=== PATIENT | male | born 1970 | race African-American/Black ===

== ENCOUNTER 2021-12-29 19:09 | Inpatient (IN) | payer MEDICAID ==
[~2021-12-29] VITALS: Ht 188 cm; Wt 77.6 kg
[2021-12-29 19:50] VITALS: BP_SYST 57
--- NOTE | 2021-12-29 20:28 | NUR ---
DR HITCHCOCK HAD ME CALL MOTHER, spk with patients mother over the phone, she stated that patient (son) Calvin Martinez is DNR, EVEN THOUGH LEFE-SUSTAINING FORM FROM [facility] STATES COMFORT MEASURES ONLY FORM IS FROM 2009.
[2021-12-29] MEDS ORDERED: NACL 0.9% 1,000 ML IV ONE (20:30)
[2021-12-29] MEDS ORDERED: dilTIAZem HCL IVP 5 MG/ML VIAL IVP ONE (20:30)
[2021-12-29] MEDS ORDERED: DILTIAZEM HCL 60 MG TABLET PO ONE (20:30)
--- NOTE | 2021-12-29 20:52 | NUR ---
SPK TO MOTHER LINDA CLINE OK TO GIVE PT HER SON CARLEY MCDOWELL MEDS TO TREAT HYPOTENSION. MOTHER STATED OK FOR COMFORT MEASURES.
[2021-12-29] MEDS ORDERED: NOREPINEPHRINE BITARTRATE 4 MG in NS 246 ML IV ONE (21:15)
[2021-12-29] MEDS ORDERED: NACL 0.9% 2,000 ML IV ONE (21:15)
[2021-12-29 21:24] LABS: ANION GAP 18 (5-15); CALCIUM 10.4 mg/dL (8.4-11.0); CHLORIDE 101 mmol/L (98-107); CREATININE 1.18 mg/dL (0.55-1.30); GLUCOSE 77 mg/dL (70-99); POTASSIUM 4.5 mmol/L (3.5-5.1); SODIUM SERUM 128 mmol/L (136-145); UREA NITROGEN, BLOOD 60 mg/dL (8-21)
[2021-12-29] MEDS ORDERED: NOREPINEPHRINE 4 MG/4 ML VIAL IV ONE (21:24)
[2021-12-29 21:37] LABS: ALANINE AMINOTRANSFERASE 7 U/L (12-78); ALBUMIN 2.2 g/dL (3.4-4.8); ASPARTATE AMINOTRANSFERASE < 5 U/L (10-37); TOTAL BILIRUBIN 0.5 mg/dL (0.0-1.0)
[2021-12-29 21:46] LABS: GFR AFRICAN AMERICAN 84 mL/min (>90)
[2021-12-29] MEDS ORDERED: PIPERACILLIN/TAZO 4.5GM/DEX-IS 100 ML IV SCH (22:00)
[2021-12-29 22:54] LABS: CHOLESTEROL 88 mg/dL (<200); HDL CHOLESTEROL 11 mg/dL (>45); LDL CHOLESTEROL 19 mg/dL (<100); TRIGLYCERIDES 126 mg/dL (30-150)
[2021-12-29 23:14] LABS: CORRECTED WHITE BLOOD COUNT 19.2 K/uL (4.5-11.0); HEMATOCRIT 25.5 % (36-54); HEMOGLOBIN 8.1 g/dL (14.0-18.0); MEAN CORPUSCULAR HEMOGLOBIN 25 pg (27-31); MEAN CORPUSCULAR HGB CONC 32 % (32-36); MEAN CORPUSCULAR VOLUME 78 fL (79.0-98.0); PLATELET COUNT (AUTO) 140 K/uL (130-430); RED BLOOD CELL COUNT(AUTO) 3.26 MIL/uL (4.2-6.2); RED CELL DISTRIBUTION WIDTH 22.8 % (9.0-15.0); WHITE BLOOD COUNT (AUTO) 19.2 K/uL (4.8-10.8)
[2021-12-29 23:57] VITALS: BP_SYST 127
--- NOTE | 2021-12-29 23:57 | NUR ---
Patient will be admitted to care of DR LOPEZ. Admitted to unit. Will go to room . Belongings list completed. Complete and up to date summary report printed. SBAR report given TO ASHLEY at bedside with opportunity for questions.
[2021-12-30] VITALS (31 sets, daily range): BP systolic 54–163
[2021-12-30 00:08] LABS: ATYPICAL LYMPHOCYTES % 0 % (0-0); BAND % (MANUAL) 0 % (0-6); LYMPHOCYTES % (MANUAL) 5 % (20-46); MONOCYTES % (MANUAL) 6 % (0-11)
[2021-12-30 00:13] LABS: NUCLEATED RED BLOOD CELLS 0.1 /100WBC (0.0-0.0)
[2021-12-30 00:14] LABS: BASOPHILS % (MANUAL) 0 % (0-2); EOSINOPHILS % (MANUAL) 0 % (0-7); METAMYELOCYTES % 0 % (0-0); MYELOCYTES % 0 % (0-0)
[2021-12-30 00:15] LABS: BLASTS, MANUAL % 0 % (0-0); OTHER CELLS,MANUAL % 0 (0-0); PROMYELOCYTES % 0 % (0-0)
[2021-12-30] MEDS ORDERED: NOREPINEPHRINE 4 MG/4 ML VIAL IV ONE ×4 (00:32→09:30)
[2021-12-30] MEDS ORDERED: PIPERACILLIN/TAZOBACTAM 3.375 GM/VIAL (ZOSYN) IV ONE (01:06)
[2021-12-30 01:09] LABS: BILIRUBIN,URINE NEGATIVE (NEGATIVE); BLOOD, URINE 3+ (NEGATIVE); CLARITY/URINE CLEAR (CLEAR); COLOR,URINE YELLOW (YELLOW); GLUCOSE,URINE NEGATIVE (NEGATIVE); KETONES,URINE NEGATIVE (NEGATIVE); LEUKOCYTE ESTERASE ,URINE 3+ (NEGATIVE); NITRITE, URINE NEGATIVE (NEGATIVE); PH,URINE 5.5 (5.0-8.0); PROTEIN URINE 2+ (NEGATIVE); UROBILINOGEN,URINE 0.2 (0.2-1.0)
[2021-12-30] MEDS: PIPERACILLIN/TAZO 3.375 GM in NS 50 ML IV SCH ×4 (01:14→17:43)
--- NOTE | 2021-12-30 01:35 | NUR ---
CONSULTATION PAGED/CALLED Reason for Consultation: A FIB RVR Person Who was Notified: MODESTO Consulting Physician: DR. FLEMING Television Specialist Specialty: PULMONOLOGY Ordering Physician: DR. STEELE Reason for Consultation: A FIB RVR Person Who was Notified: DR. PEÑA Consulting Physician: DR. PEÑA Television Specialist Specialty: CARDIOLOGY Ordering Physician: DR. STEELE
[2021-12-30] MEDS: NACL 0.9% 1,000 ML IV SCH ×2 (01:44→18:45)
[2021-12-30] MEDS ORDERED: ALBUMIN HUMAN 25% 50 ML IV ONE (01:45)
[2021-12-30] MEDS ORDERED: METOPROLOL TARTRATE 5 MG/5 ML AMPUL ONE (01:49)
[2021-12-30] MEDS: METOPROLOL TARTRATE 5 MG/5 ML AMPUL IVP PRN (01:55)
[2021-12-30 02:03] LABS: RBC,URINE 20-50 /HPF (0-3); WBC,URINE >100 /HPF (0-3)
[2021-12-30 02:04] LABS: BACTERIA,URINE MODERATE /HPF (None Seen); MUCUS,URINE 1+ /LPF (None Seen)
[2021-12-30] MEDS ORDERED: NOREPINEPHRINE BITARTRATE 4 MG in NS 246 ML IV PRN (03:15)
[2021-12-30] MEDS ORDERED: AMIODARONE HCL 450 MG/9 ML VIAL IV ONE (04:46)
[2021-12-30] MEDS: AMIODARONE HCL 450 MG in D5W 241 ML IV SCH ×2 (04:51→18:09)
[2021-12-30] MEDS ORDERED: NACL 0.9% 1,000 ML IV ONE (07:15)
--- NOTE | 2021-12-30 07:35 | NUR ---
RT NOTES Rec'd pt on vent with settings as noted on flow sheet. Will follow up with pulmo. whether to cont. settings. Abnormal breathing pattern is noted, but a/w is secure/patent. no resistance noted when sxn via trach tube. Will notify RN.
[2021-12-30 08:12] LABS: CALCIUM 9.5 mg/dL (8.4-11.0); CREATININE 1.18 mg/dL (0.55-1.30); POTASSIUM 3.5 mmol/L (3.5-5.1)
[2021-12-30 08:14] LABS: BASOPHILS # (AUTO) 0.1 K/uL (0.0-0.2); BASOPHILS % (AUTO) 0.6 % (0.0-2.0); EOSINOPHILS # (AUTO) 0.6 K/uL (0.0-0.4); EOSINOPHILS % (AUTO) 3.9 % (0.0-4.0); HEMATOCRIT 24.5 % (36-54); HEMOGLOBIN 8.3 g/dL (14.0-18.0); LYMPHOCYTES # (AUTO) 0.4 K/uL (1.0-5.5); LYMPHOCYTES % (AUTO) 2.8 % (20.5-51.5); MEAN CORPUSCULAR HEMOGLOBIN 25 pg (27-31); MEAN CORPUSCULAR HGB CONC 34 % (32-36); MEAN CORPUSCULAR VOLUME 75 fL (79.0-98.0); MONOCYTES # (AUTO) 1.6 K/uL (0.0-1.0); MONOCYTES % (AUTO) 10.1 % (1.7-9.3); NEUTROPHILS # (AUTO) 13.2 K/uL (1.8-7.7); NEUTROPHILS % (AUTO) 82.6 % (40.0-70.0); PLATELET COUNT (AUTO) 222 K/uL (130-430); RED BLOOD CELL COUNT(AUTO) 3.27 MIL/uL (4.2-6.2); RED CELL DISTRIBUTION WIDTH 22.6 % (9.0-15.0)
[2021-12-30] MEDS ORDERED: DEXTROSE 50% JECT 50 ML DISP.SYRIN IVP PRN (08:45)
--- NOTE | 2021-12-30 08:50 | NUR ---
RT NOTES Assisted with bronchoscopy, Dr Garcia utilized the glidescope via trach tube. During procedure, FIO2 was changed to 100%. a.w remains secure/patent. collected sputum during procedure, endorsed to RN who's at bedside as well. Vent to AC 18 500 +5, FIO2 to be titrated per target saturation. ABG to be drawn per dr's order.
[2021-12-30] MEDS ORDERED: VASOPRESSIN 20 UNITS/ML VIAL IV ONE (08:54)
[2021-12-30] MEDS ORDERED: SODIUM BICARBONATE 8.4% JECT 50 MEQ/50 ML SYRINGE ONE ×3 (09:09→11:56)
[2021-12-30] MEDS: VASOPRESSIN 20 UNITS in NS 99 ML IV PRN ×2 (09:11→22:04)
[2021-12-30 09:13] LABS: INR 1.2 (0.80-1.20); PROTHROMBIN TIME 12.4 SECS (9.5-12.5)
[2021-12-30] MEDS: NOREPINEPHRINE BITARTRATE 16 MG in NS 246 ML IV PRN ×2 (10:35→17:47)
[2021-12-30] MEDS: MIDAZOLAM IN NACL,ISO-OSMOT/PF 100 ML IV PRN (10:55)
[2021-12-30] MEDS ORDERED: SODIUM BICARBONATE 8.4% JECT 50 MEQ/50 ML SYRINGE IVP ONE ×2 (11:15→15:15)
[2021-12-30] MEDS: SODIUM BICARBONATE 8.4% JECT 150 MEQ in D5W 1,000 ML IVP SCH ×2 (11:55→21:09)
--- NOTE | 2021-12-30 11:55 | NUR ---
Called Dr. Robledo with a consult,spoke with Nikkie from the exchange
[2021-12-30] MEDS: VANCOMYCIN HCL 1,250 MG in NS 250 ML IV SCH (13:16)
--- NOTE | 2021-12-30 13:30 | NUR ---
notified dr munoz that patient repeat chest xray results showed right collapsed lung, dr munoz stated per his bronch this morning he believes it is severe pneumonia and he will most likely repeat the bronchoscopy tomorrow morning 12/31/21.
--- NOTE | 2021-12-30 15:30 | NUR ---
RT NOTES Tracheal stoma appears big, but no leak noted.
--- NOTE | 2021-12-30 16:12 | NUR ---
NG TUBE INSERTED TO LEFT NARE, CORRECT PLACEMENT PER AUSCULATATION BUT AWAITING CXR FOR PLACEMENT VERIFICATION.
[2021-12-30] MEDS: INSULIN LISPRO SLIDING SCALE 100 UNITS/ML VIAL (humaLOG) SUBCUT PRN ×2 (18:09→21:11)
--- NOTE | 2021-12-30 18:27 | NUR ---
notified dr frankel of gram negative rods in blood culture, patient is already on zosyn and vancomycin. no changes to orders.
[2021-12-31] VITALS (33 sets, daily range): BP systolic 86–144
[2021-12-31] MEDS ORDERED: ACETAMINOPHEN 650 MG/20.3 ML UDC GT PRN
[2021-12-31] MEDS: PIPERACILLIN/TAZO 3.375 GM in NS 50 ML IV SCH ×4 (00:16→18:01)
[2021-12-31] MEDS: VANCOMYCIN HCL 1,250 MG in NS 250 ML IV SCH ×2 (01:09→13:31)
[2021-12-31] MEDS ORDERED: NOREPINEPHRINE 4 MG/4 ML VIAL IV ONE (04:46)
[2021-12-31] MEDS: SODIUM BICARBONATE 8.4% JECT 150 MEQ in D5W 1,000 ML IVP SCH ×2 (04:46→19:00)
[2021-12-31] MEDS: NACL 0.9% 1,000 ML IV SCH (04:46)
[2021-12-31] MEDS: NOREPINEPHRINE BITARTRATE 16 MG in NS 246 ML IV PRN (04:47)
[2021-12-31] MEDS: MIDAZOLAM IN NACL,ISO-OSMOT/PF 100 ML IV PRN (04:48)
[2021-12-31] MEDS: INSULIN LISPRO SLIDING SCALE 100 UNITS/ML VIAL (humaLOG) SUBCUT PRN ×4 (05:43→23:51)
[2021-12-31] MEDS: VASOPRESSIN 20 UNITS in NS 99 ML IV PRN ×2 (06:08→21:10)
[2021-12-31] MEDS ORDERED: VASOPRESSIN 20 UNITS/ML VIAL IV ONE (06:11)
[2021-12-31] MEDS ORDERED: AMIODARONE HCL 450 MG/9 ML VIAL IV ONE ×2 (06:19→06:29)
[2021-12-31] MEDS: AMIODARONE HCL 450 MG in D5W 241 ML IV SCH ×2 (06:20→21:17)
[2021-12-31 06:52] LABS: ANION GAP 19 (5-15); CALCIUM 8.2 mg/dL (8.4-11.0); CHLORIDE 105 mmol/L (98-107); CREATININE 1.15 mg/dL (0.55-1.30); GLUCOSE 173 mg/dL (70-99); SODIUM SERUM 142 mmol/L (136-145); UREA NITROGEN, BLOOD 57 mg/dL (8-21)
[2021-12-31 07:00] LABS: ALANINE AMINOTRANSFERASE 13 U/L (12-78); ALBUMIN 1.6 g/dL (3.4-4.8); ASPARTATE AMINOTRANSFERASE 33 U/L (10-37); TOTAL BILIRUBIN 0.6 mg/dL (0.0-1.0)
[2021-12-31 08:15] LABS: GFR AFRICAN AMERICAN 87 mL/min (>90)
[2021-12-31 08:16] LABS: POTASSIUM 2.1 mmol/L (3.5-5.1)
[2021-12-31] MEDS ORDERED: POTASSIUM CHLORIDE 20 MEQ/PKT PACKET PO ONE (09:00)
[2021-12-31] MEDS ORDERED: POTASSIUM CHLORIDE 40 MEQ in NS 250 ML IV ONE (09:30)
[2021-12-31] MEDS: PANTOPRAZOLE SODIUM 40 MG TAB PO SCH (10:00)
[2021-12-31 10:21] LABS: EOSINOPHILS # (AUTO) 0.1 K/uL (0.0-0.4); HEMOGLOBIN 9.7 g/dL (14.0-18.0); LYMPHOCYTES % (AUTO) 7.4 % (20.5-51.5)
[2021-12-31 10:27] LABS: BASOPHILS % (AUTO) 0.3 % (0.0-2.0); EOSINOPHILS % (AUTO) 0.7 % (0.0-4.0); HEMATOCRIT 29.3 % (36-54); LYMPHOCYTES # (AUTO) 0.8 K/uL (1.0-5.5); MEAN CORPUSCULAR HEMOGLOBIN 25 pg (27-31); MEAN CORPUSCULAR HGB CONC 33 % (32-36); MEAN CORPUSCULAR VOLUME 74 fL (79.0-98.0); MONOCYTES # (AUTO) 0.4 K/uL (0.0-1.0); MONOCYTES % (AUTO) 3.7 % (1.7-9.3); NEUTROPHILS # (AUTO) 9.1 K/uL (1.8-7.7); PLATELET COUNT (AUTO) 74 K/uL (130-430); RED BLOOD CELL COUNT(AUTO) 3.95 MIL/uL (4.2-6.2); RED CELL DISTRIBUTION WIDTH 23.3 % (9.0-15.0); WHITE BLOOD COUNT (AUTO) 10.3 K/uL (4.8-10.8)
[2021-12-31] MEDS ORDERED: LevALBUTEROL HCL 1.25 MG/0.5 ML *CONC.* VIAL.NEB (XOPENEX CONC.) INH ONE (11:09)
[2021-12-31] MEDS ORDERED: ACETYLCYSTEINE 20% 4 ML VIAL (RT) ONE (11:09)
[2021-12-31 14:06] LABS: NEUTROPHILS % (AUTO) 87.9 % (40.0-70.0)
--- NOTE | 2021-12-31 15:19 | NUR ---
Dietitian Recommendations * Glucerna 1.5 at 55 ml/hr (goal rate), Free Water Flush: 250 ml Q6h via NGT Provides: 1980 kcal/day, 109 gm protein/day, and 2002 ml free water/day Meets: 99% of estimated caloric needs and 93% of lower end of estimated protein needs LP, MS, RD Please refer to Nutrition Assessment for details. Addendum: 12/31/21 at [address] Amended: Links added.
[2021-12-31] MEDS: ACETYLCYSTEINE 20% 4 ML VIAL (RT) INH SCH (20:33)
[2021-12-31] MEDS: LevALBUTEROL HCL 1.25 MG/0.5 ML *CONC.* VIAL.NEB (XOPENEX CONC.) INH SCH (20:34)
[2021-12-31] MEDS: ENOXAPARIN SODIUM 30 MG/0.3 ML SYRINGE SUBCUT SCH (21:34)
[2022-01-01] VITALS (32 sets, daily range): BP systolic 96–138
[2022-01-01] MEDS: PIPERACILLIN/TAZO 3.375 GM in NS 50 ML IV SCH ×2 (00:04→06:36)
[2022-01-01] MEDS: VANCOMYCIN HCL 1,250 MG in NS 250 ML IV SCH ×2 (00:50→14:11)
[2022-01-01] MEDS: MIDAZOLAM IN NACL,ISO-OSMOT/PF 100 ML IV PRN (01:18)
[2022-01-01 06:14] LABS: CALCIUM 7.9 mg/dL (8.4-11.0); CREATININE 1.16 mg/dL (0.55-1.30); POTASSIUM 3.1 mmol/L (3.5-5.1)
[2022-01-01 06:27] LABS: ALBUMIN 1.5 g/dL (3.4-4.8); TOTAL BILIRUBIN 0.5 mg/dL (0.0-1.0)
[2022-01-01] MEDS: INSULIN LISPRO SLIDING SCALE 100 UNITS/ML VIAL (humaLOG) SUBCUT PRN ×5 (06:37→21:14)
[2022-01-01] MEDS: LevALBUTEROL HCL 1.25 MG/0.5 ML *CONC.* VIAL.NEB (XOPENEX CONC.) INH SCH ×5 (07:00→23:23)
[2022-01-01] MEDS: ACETYLCYSTEINE 20% 4 ML VIAL (RT) INH SCH ×4 (07:00→19:42)
[2022-01-01 07:32] LABS: BASOPHILS % (AUTO) 0.4 % (0.0-2.0); EOSINOPHILS # (AUTO) 0.1 K/uL (0.0-0.4); EOSINOPHILS % (AUTO) 1.7 % (0.0-4.0); HEMATOCRIT 28.7 % (36-54); HEMOGLOBIN 9.6 g/dL (14.0-18.0); LYMPHOCYTES # (AUTO) 0.9 K/uL (1.0-5.5); LYMPHOCYTES % (AUTO) 17.5 % (20.5-51.5); MEAN CORPUSCULAR HEMOGLOBIN 24 pg (27-31); MEAN CORPUSCULAR HGB CONC 33 % (32-36); MEAN CORPUSCULAR VOLUME 73 fL (79.0-98.0); MONOCYTES # (AUTO) 0.4 K/uL (0.0-1.0); MONOCYTES % (AUTO) 7.5 % (1.7-9.3); NEUTROPHILS # (AUTO) 3.7 K/uL (1.8-7.7); NEUTROPHILS % (AUTO) 72.9 % (40.0-70.0); RED BLOOD CELL COUNT(AUTO) 3.93 MIL/uL (4.2-6.2)
--- NOTE | 2022-01-01 07:35 | NUR ---
ekg page 2037 for stat ekg
[2022-01-01 08:03] LABS: PLATELET COUNT (AUTO) 39 K/uL (130-430)
--- NOTE | 2022-01-01 08:05 | NUR ---
plt 39 paged
[2022-01-01] MEDS: PANTOPRAZOLE SODIUM 40 MG TAB PO SCH (09:18)
[2022-01-01] MEDS ORDERED: CEFEPIME 1 GM in D5W 50 ML IV ONE (10:00)
[2022-01-01] MEDS: POTASSIUM CHLORIDE 40 MEQ in NS 250 ML IV SCH ×2 (10:39→13:30)
[2022-01-01] MEDS: SODIUM BICARBONATE 8.4% JECT 150 MEQ in D5W 1,000 ML IVP SCH (12:49)
[2022-01-01] MEDS ORDERED: iohexoL 350 mgI/mL, 100 ML INFUS..BTL IV ONE (14:31)
[2022-01-01] MEDS ORDERED: CEFEPIME 1 GM in D5W 50 ML IV SCH (18:00)
[2022-01-01] MEDS: ENOXAPARIN SODIUM 30 MG/0.3 ML SYRINGE SUBCUT SCH (20:53)
[2022-01-02] VITALS (33 sets, daily range): BP systolic 63–169
[2022-01-02] MEDS ORDERED: MEROPENEM 500 MG VIAL IV ONE (02:38)
[2022-01-02] MEDS: MEROPENEM 1 GM in NS 100 ML IV SCH ×3 (02:45→18:18)
[2022-01-02] MEDS: LevALBUTEROL HCL 1.25 MG/0.5 ML *CONC.* VIAL.NEB (XOPENEX CONC.) INH SCH ×6 (03:04→23:21)
[2022-01-02] MEDS: SODIUM BICARBONATE 8.4% JECT 150 MEQ in D5W 1,000 ML IVP SCH (03:59)
[2022-01-02] MEDS: MIDAZOLAM IN NACL,ISO-OSMOT/PF 100 ML IV PRN ×2 (04:01→22:46)
[2022-01-02] MEDS: AMIODARONE HCL 450 MG in D5W 241 ML IV SCH ×2 (05:46→13:11)
[2022-01-02] MEDS: INSULIN LISPRO SLIDING SCALE 100 UNITS/ML VIAL (humaLOG) SUBCUT PRN ×4 (05:48→20:56)
--- NOTE | 2022-01-02 06:30 | NUR ---
1915 assumed care recd report from Rene LAMB for continuity of care. 1999 weaning levophed as tolerated. 0430 CHG bath given skin care and pericare done, foam dressing done turn and reposition to comfort. had BMx1 large amount loose. vss tolerates weaning levophed at 0.06 mcg/kg/min.
[2022-01-02] MEDS: ACETYLCYSTEINE 20% 4 ML VIAL (RT) INH SCH ×4 (07:16→23:20)
[2022-01-02] MEDS ORDERED: LevALBUTEROL HCL 1.25 MG/0.5 ML *CONC.* VIAL.NEB (XOPENEX CONC.) INH ONE (07:16)
--- NOTE | 2022-01-02 07:38 | NUR ---
OPENING NOTE: REPORT RCVD FROM OUTGOING NOC RN, ALL CARES ASSUMED.
--- NOTE | 2022-01-02 07:49 | NUR ---
DR. STEELE MAKING ROUNDS, BEDSIDE REPORT GIVEN, TO REVIEW CHART.
[2022-01-02 08:32] LABS: POTASSIUM 3.8 mmol/L (3.5-5.1)
[2022-01-02 08:33] LABS: ALBUMIN 4.4 g/dL (3.4-4.8); CALCIUM 7.5 mg/dL (8.4-11.0); CREATININE 1.21 mg/dL (0.55-1.30); TOTAL BILIRUBIN 0.4 mg/dL (0.0-1.0)
[2022-01-02] MEDS: PANTOPRAZOLE SODIUM 40 MG TAB PO SCH (09:05)
[2022-01-02] MEDS ORDERED: FUROSEMIDE 40 MG/4 ML VIAL IVP ONE (09:30)
--- NOTE | 2022-01-02 09:36 | NUR ---
DR. PERALTA MAKING ROUNDS, BEDSIDE REPORT GIVEN, TO REVIEW CHART.
--- NOTE | 2022-01-02 09:45 | NUR ---
RT NOTES Dr Garcia was made aware of pt's PIP in the high 30s, low 40s. Stated, pt may need another bronch tomorrow.
--- NOTE | 2022-01-02 09:46 | NUR ---
MOTHER CALLED UNIT, PER MOTHER SHE WANTS PATIENT TO BE PLACED ONTO COMFORT MEASURES ON Tuesday AT 10:00AM. PER MOTHER SHE WANTS ALL VASOPRESSORS REMOVED AND ALLOW PATIENT TO PASS NATURALLY. SECOND RN VERIFIED OVER PHONE, DR. PERALTA AWARE AND HAS AGREED TO CHANGE IN CODE STATUS.
[2022-01-02] MEDS: NOREPINEPHRINE BITARTRATE 16 MG in NS 246 ML IV PRN (09:50)
[2022-01-02 11:09] LABS: BASOPHILS % (AUTO) 0.3 % (0.0-2.0); EOSINOPHILS # (AUTO) 0.2 K/uL (0.0-0.4); EOSINOPHILS % (AUTO) 3.2 % (0.0-4.0); HEMATOCRIT 24.9 % (36-54); HEMOGLOBIN 8.4 g/dL (14.0-18.0); LYMPHOCYTES # (AUTO) 1.1 K/uL (1.0-5.5); LYMPHOCYTES % (AUTO) 21.2 % (20.5-51.5); MEAN CORPUSCULAR HEMOGLOBIN 25 pg (27-31); MEAN CORPUSCULAR HGB CONC 34 % (32-36); MEAN CORPUSCULAR VOLUME 73 fL (79.0-98.0); MONOCYTES # (AUTO) 0.4 K/uL (0.0-1.0); MONOCYTES % (AUTO) 8.5 % (1.7-9.3); NEUTROPHILS # (AUTO) 3.3 K/uL (1.8-7.7); NEUTROPHILS % (AUTO) 66.8 % (40.0-70.0); RED CELL DISTRIBUTION WIDTH 22.4 % (9.0-15.0)
[2022-01-02 11:26] LABS: ALBUMIN 1.4 g/dL (3.4-4.8); CREATININE 1.21 mg/dL (0.55-1.30); POTASSIUM 3.6 mmol/L (3.5-5.1); TOTAL BILIRUBIN 0.6 mg/dL (0.0-1.0)
--- NOTE | 2022-01-02 11:27 | NUR ---
BLOOD GLUCOSE 224
--- NOTE | 2022-01-02 12:00 | NUR ---
RN ROUNDS: PATIENT REPOSITIONED AND CARES PROVIDED, CHG BATH COMPLETED. HINES CATH CARE COMPLETED, PATIENT TOLERATED WELL. BED LOW AND LOCKED FOR SAFETY.
[2022-01-02] MEDS: METOPROLOL TARTRATE 5 MG/5 ML AMPUL IVP PRN (13:09)
[2022-01-02] MEDS: VASOPRESSIN 20 UNITS in NS 99 ML IV PRN (13:09)
--- NOTE | 2022-01-02 13:09 | NUR ---
PRN LOPRESSOR GIVEN FOR HR 186
[2022-01-02] MEDS: NOREPINEPHRINE BITARTRATE 16 MG in NS 234 ML IV PRN (13:10)
[2022-01-02 15:36] LABS: PLATELET COUNT (AUTO) 32 K/uL (130-430)
[2022-01-02 17:37] LABS: VANCOMYCIN,RANDOM 100.1 ug/mL
[2022-01-02] MEDS: HYDROCORTISONE SOD SUCC 100 MG/2 ML VIAL IVP SCH (18:19)
--- NOTE | 2022-01-02 19:01 | NUR ---
OPENING NOTE: REPORT GIVEN TO INCOMING NOC RN, ALL CARES ENDORSED.
[2022-01-03] VITALS (28 sets, daily range): BP systolic 99–140
[2022-01-03] MEDS: SODIUM BICARBONATE 8.4% JECT 150 MEQ in D5W 1,000 ML IVP SCH ×2 (00:13→08:32)
[2022-01-03] MEDS: MEROPENEM 1 GM in NS 100 ML IV SCH ×3 (02:00→18:12)
[2022-01-03] MEDS: LevALBUTEROL HCL 1.25 MG/0.5 ML *CONC.* VIAL.NEB (XOPENEX CONC.) INH SCH ×5 (03:29→21:18)
[2022-01-03] MEDS: INSULIN LISPRO SLIDING SCALE 100 UNITS/ML VIAL (humaLOG) SUBCUT PRN ×4 (06:35→20:29)
[2022-01-03] MEDS: AMIODARONE HCL 450 MG in D5W 241 ML IV SCH ×2 (06:38→15:18)
[2022-01-03] MEDS: HYDROCORTISONE SOD SUCC 100 MG/2 ML VIAL IVP SCH ×5 (06:39→23:08)
--- NOTE | 2022-01-03 06:45 | NUR ---
weaned levophed overnight tolerating well VSS maintaining map>65mmhg, sedated and tolerating current vent settings see assessment spreadsheet. good urine output, continue care 0500 chg bath given, skin care,oral care and pericare done, turn and reposition to comfort. had one large BM, [id number] remains on 2 pressors and amiodarone gtt continued.
[2022-01-03] MEDS: ACETYLCYSTEINE 20% 4 ML VIAL (RT) INH SCH ×4 (07:19→21:18)
--- NOTE | 2022-01-03 07:48 | NUR ---
OPENING NOTE: REPORT RCVD FROM OUTGOING NOC RN, ALL CARES ASSUMED.
--- NOTE | 2022-01-03 07:49 | NUR ---
DR. STEELE MAKING ROUNDS, BEDSIDE REPORT GIVEN, TO REVIEW CHART.
[2022-01-03] MEDS: PANTOPRAZOLE SODIUM 40 MG TAB PO SCH (08:20)
[2022-01-03 08:22] LABS: ALBUMIN 1.4 g/dL (3.4-4.8); CALCIUM 7.6 mg/dL (8.4-11.0); CREATININE 1.26 mg/dL (0.55-1.30); POTASSIUM 3.8 mmol/L (3.5-5.1); TOTAL BILIRUBIN 0.4 mg/dL (0.0-1.0)
--- NOTE | 2022-01-03 08:29 | NUR ---
DR. PEÑA MAKING ROUNDS, BEDSIDE REPORT GIVEN, TO REVIEW CHART.
[2022-01-03] MEDS: NOREPINEPHRINE BITARTRATE 16 MG in NS 234 ML IV PRN (08:31)
--- NOTE | 2022-01-03 08:37 | NUR ---
Nutrition follow up Admitting Diagnosis Sepsis, atr fibr RVR Reviewed Pertinent Medical/Surgical Hx Medical Record Patient RN Medical History Comment: PMH: TBI, trach/vent-dependence, atr fibr, and DM per physician notes Pt also found w/ [id number] hypoxic respiratory failure w/ vent-depencence, s/p trach, R lung pneumonia, hyponatremia, VMN, and severe metabolic acidosis per physician notes Subjective Information The patient was trach to vent, TF of Glucerna 1.5 was infusing @ goal rate of 55 ml/h at time of visit. Discussed w/ primary RN and plan is to transition to comfort measures on 01/04 @ 0900. Per EMR review, Glucerna 1.2 at 20 ml/hr w/ 0 ml GRV 01/02; TF volume provided 01/02 1320 ml. LBM x1 01/02. Pt is meeting nutritional needs currently although plan is to DC TF tomorrow. Current Diet Order/Nutrition Support Glucerna 1.5 at 55 ml/hr, Free Water Flush: 250 via NGT q6h x 3 days Patient/Significant Other Unable To Verbalize Education Provided Not Indicated Pertinent Medications Solu-cortef, Protonix, SSI Pertinent Labs BUN 57 H, creatinine 1.21 WNL, glucose 283 H, POC glucose range (01/02): 216-283 H Height (Feet) 6 feet Height (Inches) 2.00 inches Weight (Pounds) 171 pounds Weight (Calculated Kilograms) 77.243452 kilograms - stable since 12/29 Patient Weight 77.564 kg Body Mass Index 21.95 kg/m2 %IBW 90 [place]/Adjusted Body Weight 190#/86.4 kg Recent Weight Change Unable to verify Weight Status Appropriate Food Allergies Unable to verify Usual Diet At Home Unable to verify Skin Integrity Comment: Yung scale: 8 w/ lower R foot dry scab noted per EMR review Estimated Energy Expenditure (kcals/day) 1988 (PSU d/t critical illness; Ve: 9.5, Tmax: 37.5'C) Estimated Protein Required (g/day) 117-155 (1.5-2 gm/kg CBW d/t sepsis) Estimated Fluid Required (l/day) 2 (1 ml/kcal/day for maintenance) Problem/Etiology/Signs/Symptoms Increased nutritional needs R/T metabolic demands AEB estimated nutritional needs for sepsis. Expected Outcomes/Goals - Support goals of care - Until transition to comfort measures only, monitor TF tolerance with goal of pt meeting >80% of estimated nutritional needs, labs trending WNL, normal GI function, and skin integrity/wt maintenance Dietitian Recommendations * Glucerna 1.5 at 55 ml/hr (goal rate), Free Water Flush: 250 ml Q6h via NGT Provides: 1980 kcal/day, 109 gm protein/day, and 2002 ml free water/day Meets: 99% of estimated caloric needs. 93% of lower end of estimated protein needs, and 100% of estimated fluid needs Follow Up High Risk: F/U in 2-3days
--- NOTE | 2022-01-03 09:02 | NUR ---
DR. PERALTA MAKING ROUNDS, BEDSIDE REPORT GIVEN, TO REVIEW CHART.
[2022-01-03] MEDS: MIDAZOLAM IN NACL,ISO-OSMOT/PF 100 ML IV PRN ×2 (15:19→22:01)
[2022-01-03] MEDS: VASOPRESSIN 20 UNITS in NS 99 ML IV PRN (15:20)
--- NOTE | 2022-01-03 16:55 | NUR ---
RN ROUNDS: PATIENT REPOSITIONED AND CARES PROVIDED, CHG BATH COMPLETED. HINES CATH CARE COMPLETED, PATIENT TOLERATED WELL. BED LOW AND LOCKED FOR SAFETY.
--- NOTE | 2022-01-03 18:52 | NUR ---
CLOSING NOTE: REPORT GIVEN TO INCOMING NOC RN, ALL CARES ENDORSED.
[2022-01-04] VITALS (19 sets, daily range): BP systolic 111–129
[2022-01-04] MEDS: LevALBUTEROL HCL 1.25 MG/0.5 ML *CONC.* VIAL.NEB (XOPENEX CONC.) INH SCH ×3 (00:52→07:16)
[2022-01-04] MEDS: MEROPENEM 1 GM in NS 100 ML IV SCH ×2 (02:33→09:28)
[2022-01-04] MEDS: HYDROCORTISONE SOD SUCC 100 MG/2 ML VIAL IVP SCH (05:28)
[2022-01-04] MEDS: INSULIN LISPRO SLIDING SCALE 100 UNITS/ML VIAL (humaLOG) SUBCUT PRN ×2 (05:29→09:31)
[2022-01-04] MEDS: ACETYLCYSTEINE 20% 4 ML VIAL (RT) INH SCH (07:16)
--- NOTE | 2022-01-04 08:45 | NUR ---
MANAGER USER INTERFACE ACSW Rylee responded to a [employer] Operator Consult/Referral for "End of Life Support" from Dr. Gonzalez. Sports Therapist Kosta also shared that family has requested a Slunk Skinner for bedside prayer. ACSW consulted with assigned ZAINAB Dougherty regarding family's wishes. ACSW Rylee contacted patient's mother Richie Hodgson to obtain further clarification and Cheondoism preferences for prayer. According to Ms. Hodgson, they will not be requiring a Slunk Skinner, they have chosen to pray as a family and will need support with being placed on speaker phone inside of patient's room as they will not be making the trip from [place] at this time. ACSW provided update to ZAINAB Dougherty. ACSW will continue to be available as needed.
[2022-01-04] MEDS: PANTOPRAZOLE SODIUM 40 MG TAB PO SCH (09:28)
--- NOTE | 2022-01-04 10:05 | NUR ---
SLIP COVER SEWER As planned, in an effort to support Cultural and Spiritual/ Restorationism practices concerning End of Life, ACSCathy Mckee contacted patient's mother via speaker phone and informed her that RN Farhat and RT Enma were also present and would be completing the withdraw of care. Family completed prayer and thanked Present staff and facility for their care of patient, and shared patient's former assisted living would be contacting this facility regarding Stellar. ANGIE will continue to be available as needed Addendum: 01/04/22 at 1107 by Rylee GORE RT heather Jimenez
--- NOTE | 2022-01-04 10:25 | NUR ---
Patient Placed on Comfort Measures as Scheduled per Family Request. Family on the Telephone Line while Patient Disconnected from Ventilator and all IV Drips. Patient in Asystole at 1025 with no Palpable Pulses, no Breath Sounds Auscultated, and no Heart Sounds Auscultated. End of Care.
--- NOTE | 2022-01-04 10:59 | NUR ---
1015 TERMINAL VENT REMOVAL, PT 1025. Addendum: 01/04/22 at 1103 by Tenisha Alvarez RT Amended: Links added.
== END 2022-01-04 10:35 | DRG 720 ==
LOC: SED 19:09 → SIC 23:05
PROVIDERS: ADMIT Family Medicine; ATTEND Family Medicine
PROC: 5A1955Z Respiratory Ventilation, Greater than 96 Consecutive Hours (ICD-10-PCS; principal; 2021-12-29)
PROC: 02HV33Z Insertion of Infusion Device into Superior Vena Cava, Percutaneous Approach (ICD-10-PCS; 2021-12-29)
PROC: B548ZZA Ultrasonography of Superior Vena Cava, Guidance (ICD-10-PCS; 2021-12-29)
PROC: 4A10X4Z Monitoring of Central Nervous Electrical Activity, External Approach (ICD-10-PCS; 2021-12-31)
PROC: 0B9K8ZX Drainage of Right Lung, Via Natural or Artificial Opening Endoscopic, Diagnostic (ICD-10-PCS; 2021-12-31)
DX: A41.51 Sepsis due to Escherichia coli [E. coli] (principal); N17.0 Acute kidney failure with tubular necrosis; R65.21 Severe sepsis with septic shock; G82.50 Quadriplegia, unspecified; G93.40 Encephalopathy, unspecified; J15.1 Pneumonia due to Pseudomonas; D69.6 Thrombocytopenia, unspecified; G93.41 Metabolic encephalopathy; I48.20 Chronic atrial fibrillation, unspecified; E11.649 Type 2 diabetes mellitus with hypoglycemia without coma; E87.1 Hypo-osmolality and hyponatremia; N39.0 Urinary tract infection, site not specified; Z20.822 Contact with and (suspected) exposure to COVID-19; E87.2 Acidosis; Z16.24 Resistance to multiple antibiotics; Z16.12 Extended spectrum beta lactamase (ESBL) resistance; Z66 Do not resuscitate; Z87.820 Personal history of traumatic brain injury; Z93.0 Tracheostomy status; Z99.11 Dependence on respirator [ventilator] status; Z79.82 Long term (current) use of aspirin; Z79.01 Long term (current) use of anticoagulants; Z74.01 Bed confinement status; Z79.84 Long term (current) use of oral hypoglycemic drugs; Z79.899 Other long term (current) drug therapy; J96.10 Chronic respiratory failure, unspecified whether with hypoxia or hypercapnia
CPT/HCPCS: 36415; 36600; 71045; 71260-TC; 76376; 76604; 80048; 80053; 80061; 80202; 81000; 82550; 82803-TC; 82962; 83605; 83880; 84484; 85007; 85025; 85027; 85610-TC; 85730-TC; 87040; 87070-TC; 87081; 87086; 87205-TC; 93005; 93306; 94002; 94003; 94640; 94668; 95816; 96361; 96365; 96375; 99291; J0692; J1650; J1720; J1940; J2185; J2543; J3370; J3480; J3490; J7030; J7050; J7060; J7608; J7612; P9046; Q9967